=== PATIENT | female | born 1985 | race Two or more races ===

== ENCOUNTER 2024-07-23 16:08 | Emergency (ER) | payer MEDICAID, SELFPAY ==
[2024-07-23 16:26] VITALS: BP 124/79; PULSE 74; RESP 18; TEMP 37.2; O2SAT 98; BMI 36.8
--- NOTE | 2024-07-23 16:37 | PD.EDRME ---
Rapid Medical Screening Exam RME Arrival date/time: 07/23/24 16:08 Const 39-year-old female was contacted by outpatient labs and told to go to the emergency department for a workup of anemia due to low iron. Chief Complaint: Recheck/Abnormal Lab/Rx Vital signs: Vital Signs Temperature 98.9 F 07/23/24 16:26 Pulse Rate 74 07/23/24 16:26 Respiratory Rate 18 07/23/24 16:26 Blood Pressure 124/79 07/23/24 16:26 Pulse Oximetry (%) 98 07/23/24 16:26 Oxygen Delivery Method Room Air 07/23/24 16:26
[2024-07-23 17:58] LABS: Basophils % (Auto) 1 % (0-2.5); Eosinophils # (Auto) 0.2 Thou/mm3 (0.0-0.5); Eosinophils % (Auto) 4 % (0-10); Hematocrit 21.5 % (36.0-46.0); Immature Granulocytes % (Auto) 0 % (0-0); Immature Granulocytes Auto 0.02 Thou/mm3 (0.00-0.00); Lymphocytes # (Auto) 1.6 Thou/mm3 (1.0-4.8); Lymphocytes % (Auto) 30 % (10-50); Mean Corpuscular HGB Conc 27.9 g/dl (31.0-37.0); Mean Corpuscular Hemoglobin 16.3 pg (25.0-35.0); Mean Corpuscular Volume 59 fL (80-100); Monocytes # (Auto) 0.3 Thou/mm3 (0.0-0.8); Monocytes % (Auto) 6 % (0-12); Neutrophils # (Auto) 3.3 Thou/mm3 (1.8-7.7); Neutrophils % (Auto) 59 % (37-80); Nucleated Red Blood Cell % 0 /100 WBC (0); Platelet Count 397 Thou/mm3 (140-440); Red Blood Count 3.67 Miln/mm3 (4.00-5.20); White Blood Count 5.5 Thou/mm3 (3.6-11.0)
[2024-07-23 18:06] LABS: Partial Thromboplastin Time 23.9 Seconds (22.0-36.0); Prothrombin Time 11.4 Seconds (9.0-12.2)
[2024-07-23 18:13] LABS: Alanine Aminotransferase 17 U/L (10-49); Albumin, Serum 4.9 gm/dL (3.5-5.0); Anion Gap 10 (7-16); Aspartate Amino Transferase 42 U/L (0-34); BUN/Creatinine Ratio 11 Ratio (12-20); Bilirubin,Total 0.5 mg/dL (0.3-1.2); Blood Urea Nitrogen 11 mg/dL (9-23); Calcium 9.3 mg/dL (8.3-10.6); Carbon Dioxide 23.8 mMol/L (20.0-31.0); Chloride 108 mMol/L (98-107); Estimated Creatinine Clearance 85.6 mL/min (>60); Glucose 86 mg/dL (74-106); Osmolality,Calculated 281 (275-295); Potassium 3.9 mMol/L (3.4-5.1); Sodium 142 mMol/L (136-145); Total Protein 8.1 gm/dL (5.7-8.2); eGFR > 60 See Note
[2024-07-23 18:14] LABS: Albumin/Globulin Ratio 1.5 (1.2-2.2); Alkaline Phosphatase 58 U/L (46-116); Calcium (Corrected) 9.3 mg/dL (8.5-10.1); Globulin 3.2 gm/dL (2.3-3.5); HCG,Qualitative Serum Negative
[2024-07-23 18:18] LABS: Ferritin 2 ng/mL (7.3-270.7); Iron 11 mcg/dL (50-170); Percent Iron Saturation 2 % (20-55); Total Iron Binding Capacity 525 mcg/dL (250-425); Unsaturated Iron Binding 514 (225-295)
[2024-07-23 22:48] VITALS: BP 135/83; PULSE 60; RESP 16; TEMP 36.8; O2SAT 100
--- NOTE | 2024-07-23 23:01 | PD.EDRECHK ---
ED Recheck Abnl Lab Rx-RME/HPI General Chief Complaint: Recheck/Abnormal Lab/Rx Stated Complaint: SENT BY [facility] FOR BLOOD TRANSFUSION Time Seen by Provider: 07/23/24 22:28 Arrival date/time: 07/23/24 16:08 RME / HPI RME / HPI narrative: 07/23/24 16:08 Const 39-year-old female was contacted by outpatient labs and told to go to the emergency department for a workup of anemia due to low iron. ----- Dr. Farnsworth?s Main ED Evaluation: 39yo female presents to the ED for a chief complaint of abnormal labs. Patient states she had outpatient labs done at [facility], reporting she received a call from them today and was told to come in for a blood transfusion. Patient states her periods have been heavier than normal. Patient denies any hematemesis, bloody/black stools or any other associated symptoms. She denies any history of blood transfusions. She is not on a special diet. No known allergies. Related Data Home Medications ?Medication ?Instructions ?Recorded ?Confirmed vit no.95-ferrous 1 tab PO QDAY 09/04/18 09/06/18 fumarate 28 mg-folic acid 800 mcg tablet () Previous Rx's ?Medication ?Instructions ?Recorded cyclobenzaprine 10 mg tablet 10 mg PO TID PRN muscle spasm #30 02/13/20 tabs ibuprofen 800 mg tablet 800 mg PO TID PRN pain #30 tabs 02/13/20 Allergies Allergy/AdvReac Type Severity Reaction Status Date / Time No Known Allergies Allergy Verified 07/23/24 16:11 Review of Systems Review of Systems Systems Reviewed: All systems reviewed, normal except as documented Past Medical History Past Medical History NEUROLOGIC: Negative Neurological Disorders CARDIAC: Negative Cardiac Disorders or Congestive Heart Failure RESPIRATORY: Negative Chronic Obstructive Pulmonary Disease (COPD) GASTROINTESTINAL: Negative Gastrointestinal Disorders, Hepatitis or Colorectal Cancer GENITOURINARY: Negative Genitourinary Disorders, Renal Disease or Prostate Cancer REPRODUCTIVE: Positive Previous Pregnancies; Negative Breast Cancer, Endometriosis, Pelvic Inflammatory Disease, Testicular Cancer or Uterine Prolapse MUSCULOSKELETAL: Negative Musculoskeletal Disorders or Bone Cancer ENDOCRINE: Positive Endocrine Disorders; Negative Diabetes Mellitus Type 1 or Diabetes Mellitus Type 2 HEMATOLOGIC: Positive Anemia; Negative Blood Disorders OTHER HISTORY: Positive Hospitalization; Negative Autoimmune Disease, Down Syndrome, Developmental Delay, Shingles, Falls, Blood Transfusions, Blood Transfusion Reaction, Anesthesia Reactions, Organ Transplant, Chemotherapy, Radiation Therapy, Hyperbaric Therapy, MRSA, VRSA, Vancomycin-Resistant Enterococci, Human Immunodeficiency Virus (HIV), Chicken Pox, Measles, Mumps, Rubella (Jordanian Measles), Pertussis, Clostridium Difficile, Cancer, Breast Cancer, Cervical Cancer, Colorectal Cancer, Lung Cancer, Ovarian Cancer, Prostate Cancer or Testicular Cancer Family History FAMILY HISTORY: Negative Family Psychiatric Problems, Family Respiratory Disorders, Family Cardiac Disorders, Family Gastrointestinal Problems, Family Cancer, Family Surgery or Family Anesthesia Reaction Surgical History SURGICAL: Negative Section or Organ Transplant Social History SMOKING STATUS: Never smoker SECOND HAND EXPOSURE: No SUBSTANCE USE: does not use ED Exam Narrative Physical exam: GENERAL APPEARANCE: alert and oriented x 4, well-developed, well-nourished, no acute distress VITALS: All vitals were reviewed and the pulse ox is 100% on room air, which is normal according to my interpretation. HEENT: Normocephalic, atraumatic; pupils equal, round, reactive to light; EOMI; mucous membranes pink, moist; oropharynx clear NECK: Supple LUNGS: CTABL; no wheezes, no rales, no rhonchi HEART: Regular rate, regular rhythm; normal S1, S2; no murmurs ABDOMEN: non distended; normal BS; soft, no tenderness, no guarding, no rebound; no masses, no organomegaly, no hernia BACK: no CVA tenderness EXTREMITIES: atraumatic; no edema NEUROLOGIC: awake; alert and oriented x4; cranial nerves II-XII grossly intact; no focal sensory or motor deficits PSYCHIATRIC: appropriate mood and affect SKIN: warm, dry, pale; no rashes Course Quality Measures none Orders Category Date Time Status Sizing Machine Operator Q4H START 00 Care 07/23/24 23:17 Active Continuous Pulse Oximetry NOW Care 07/23/24 23:17 Completed Insert IV NOW Care 07/23/24 23:05 Active Transfuse,blood/blood products NOW Care 07/23/24 23:02 Active CBC Stat Lab 07/23/24 17:07 Completed CMP [Comprehensive Metabolic Panel] Stat Lab 07/23/24 17:07 Completed Ferritin Stat Lab 07/23/24 17:07 Completed HCG,Qualitative Serum Stat Lab 07/23/24 17:07 Completed Iron Panel Stat Lab 07/23/24 17:07 Completed PT [Prothrombin Time with INR] Stat Lab 07/23/24 17:07 Completed PTT [Partial Thromboplastin Time] Stat Lab 07/23/24 17:07 Completed Type and Screen Stat Lab 07/23/24 23:02 Results prbc [Red Blood Cells] Stat Lab 07/23/24 23:02 Results Vital Signs Vital signs: Vital Signs Temperature 98.9 F 07/23/24 16:26 Pulse Rate 74 07/23/24 16:26 Respiratory Rate 18 07/23/24 16:26 Blood Pressure 124/79 07/23/24 16:26 Pulse Oximetry (%) 98 07/23/24 16:26 Oxygen Delivery Method Room Air 07/23/24 16:26 Recheck / Abnormal Lab / Rx MDM Narrative MDM Narrative:: Scribe Attestation: 07/23/24 Aaliyah Butts am scribing for and in the presence of Dr. Farnsworth. 2 units of pRBCs ordered due to the patient's hemoglobin and hematocrit being low. The patient was placed in ED observation care at 07/23/24 at 2315 hours. The patient was placed in ED observation care because of pending blood transfusion. The patients past medical history, social history, and family history were reviewed. At 0600, patient is still receiving her 2 unit of pRBCs. After the second unit is completed, the patient is able to be discharged home. Patient data External records reviewed:: [facility] previous records (Per chart review, patient has no relevant previous ED visits to this facility.) Clinical information provided by:: patient Social determinants that could affect healthcare access:: none Patient has the following chronic illnesses:: none How is presenting disease/condition affected by chronic disease/condition?: no chronic disease Evaluation data The following diagnostics were reviewed and interpreted by me:: lab results Lab and/or radiology exams considered but not ordered:: none Interpretation Summary: HnH is low at 6.0/21.5, Platelets are normal, PT and INR are normal, PTT is normal, Ferritin is low at 2, HCG is negative, according to my interpretation. Medications / Prescriptions Medications or Prescriptions considered but not ordered:: none Medication administrations:: 2 units pRBCs Consultations Consultation(s) initiated? (list below): No Diagnosis Recheck Differential Diagnosis: other (iron deficiency anemia, hemolytic anemia, microcytic anemia) Most likely diagnosis given after review of the tests above:: see clinical impression below Admission Indicated Admission indicated?: not indicated Admission Request Was there a request for admission?: No Disposition Plan Disposition Plan: Discharge Discharge Attestation Discharge Attestation: The patient and all family members were given an opportunity to ask questions and understood the discharge instructions. Discharge instructions specifically effects, indications for sooner follow up or return to the emergency department, and the expected course of current diagnosis. Patient condition: Stable Discharge Plan Plan Patient Disposition: HOME (Self Care) Disposition Comment: Stable for discharge home Patient condition on transfer: Stable Prescriptions/Referrals Prescriptions/Med Rec: No Action PNV cmb#95-ferrous fumarate-FA [] 28 mg iron- 800 mcg Tablet 1 tab PO QDAY ibuprofen 800 mg tablet 800 mg PO TID PRN (Reason: pain) Qty: 30 0RF cyclobenzaprine 10 mg tablet 10 mg PO TID PRN (Reason: muscle spasm) Qty: 30 0RF Referrals: [facility] [Provider Group] - In 1 week Rgoe Gray MD [Physician] - In 1 week Problem List Clinical Impression: Iron deficiency anemia, Menorrhagia Patient/Caregiver Discharge Instructions Discharge Activity: activity as tolerated Education Materials: Anemia, ED Anemia, Iron-Deficiency (Adult), ED Heavy Menstrual Bleeding Additional Instructions: Please return to the emergency department if you have any worsening or any further medical problems and we will help you. Otherwise you should follow-up in the [facility] within the next several days. Please let them know that you need to see a [employer] doctor. Print Language: Singaporean Stand Alone Forms: [employer] Award Info., Patient Portal Info Letter
[2024-07-24] VITALS (13 sets, daily range): BP systolic 118–149; BP diastolic 74–91; PULSE 60–72; RESP 13–20; TEMP 36.3–36.9; O2SAT 98–100
[2024-07-24 06:14] LABS: Path Review Blood Smear Sent to Pathologist
[2024-07-24 10:00] LABS: Basophils % (Auto) 1 % (0-2.5); Eosinophils % (Auto) 1 % (0-10); Hemoglobin 9.1 g/dL (12.0-16.0); Immature Granulocytes % (Auto) 0 % (0-0); Immature Granulocytes Auto 0.02 Thou/mm3 (0.00-0.00); Lymphocytes # (Auto) 1.1 Thou/mm3 (1.0-4.8); Lymphocytes % (Auto) 19 % (10-50); Mean Corpuscular HGB Conc 29.4 g/dl (31.0-37.0); Mean Corpuscular Volume 65 fL (80-100); Monocytes # (Auto) 0.4 Thou/mm3 (0.0-0.8); Monocytes % (Auto) 7 % (0-12); Neutrophils # (Auto) 4.1 Thou/mm3 (1.8-7.7); Neutrophils % (Auto) 73 % (37-80); Nucleated Red Blood Cell % 0 /100 WBC (0); Platelet Count 442 Thou/mm3 (140-440); Red Blood Count 4.79 Miln/mm3 (4.00-5.20); White Blood Count 5.6 Thou/mm3 (3.6-11.0)
--- NOTE | 2024-07-24 10:23 | PD.EDADDENDU ---
Emergency Room Addendum Addendum Narrative: Patient was signed out 0600 hrs. and the transfusion was ongoing and at 1024 hrs. the second unit is completed and a follow-up CBC came back with a hemoglobin of 9.1. Patient is having no active bleeding at this time but has had irregular and heavy bleeds with her periods. She knows to follow-up with her clinic in the next couple days to get that addressed. She does take iron sulfate 325 twice a day and return if getting worse. Patient is alert awake eating with no nausea vomiting and vital signs are stable. She did stand and walk without any difficulty
[2024-07-24 10:33] LABS: Alanine Aminotransferase 20 U/L (10-49); Albumin, Serum 5.1 gm/dL (3.5-5.0); Albumin/Globulin Ratio 1.6 (1.2-2.2); Alkaline Phosphatase 58 U/L (46-116); Anion Gap 9 (7-16); Aspartate Amino Transferase 36 U/L (0-34); BUN/Creatinine Ratio 13 Ratio (12-20); Bilirubin,Total 1.6 mg/dL (0.3-1.2); Blood Urea Nitrogen 12 mg/dL (9-23); Calcium 9.4 mg/dL (8.3-10.6); Calcium (Corrected) 9.4 mg/dL (8.5-10.1); Carbon Dioxide 22.8 mMol/L (20.0-31.0); Chloride 105 mMol/L (98-107); Creatinine (Component) 0.9 mg/dL (0.6-1.3); Estimated Creatinine Clearance 95.2 mL/min (>60); Globulin 3.1 gm/dL (2.3-3.5); Glucose 88 mg/dL (74-106); Osmolality,Calculated 272 (275-295); Sodium 137 mMol/L (136-145); Total Protein 8.2 gm/dL (5.7-8.2); eGFR > 60 See Note
== END 2024-07-24 10:53 | disposition home or self-care (01) ==
PROVIDERS: Physician Assistant; Emergency Provider Emergency Medicine
DX: D50.9 Iron deficiency anemia, unspecified (principal); N92.0 Excessive and frequent menstruation with regular cycle
CPT/HCPCS: 36415; 36430; 80053; 82728; 83540; 83550; 84703; 85025; 85610; 85730; 86850; 86900; 86901; 86923; 99285; P9016

== ENCOUNTER 2024-09-29 11:01 | Emergency (ER) | payer MEDICAID, SELFPAY ==
[2024-09-29 11:26] VITALS: BP 147/87; PULSE 64; RESP 18; TEMP 37.1; O2SAT 100; BMI 35.4
--- NOTE | 2024-09-29 11:41 | PD.EDBACK ---
ED Back Injury Pain RME/HPI General Chief Complaint: Extremity Injury, Lower Stated Complaint: Left leg pain Time Seen by Provider: 09/29/24 11:09 Arrival date/time: 09/29/24 11:01 RME / HPI RME / HPI Narrative: 39-year-old patient presents emergency department with complaint of left lower leg pain radiating up to her back. Patient states that she stepped in a gopher hole 3 weeks ago and her pain has persisted since then. Patient states occasionally her pain waxes and wanes but this recent flareup was 3 days ago. She has seen her PCP and her PCP recommended she would need physical therapy but she states she that she has not been called for the physical therapy appointment. She denies numbness and tingling to bilateral lower extremity. Pain is usually worsened with activity. Related Data Home Medications ?Medication ?Instructions ?Recorded ?Confirmed vit no.95-ferrous 1 tab PO QDAY 09/04/18 09/06/18 fumarate 28 mg-folic acid 800 mcg tablet () Previous Rx's ?Medication ?Instructions ?Recorded cyclobenzaprine 10 mg tablet 10 mg PO TID PRN muscle spasm #30 02/13/20 tabs ibuprofen 800 mg tablet 800 mg PO TID PRN pain #30 tabs 02/13/20 ibuprofen 800 mg tablet 800 mg PO Q8H #30 tabs 09/29/24 Allergies Allergy/AdvReac Type Severity Reaction Status Date / Time No Known Allergies Allergy Verified 09/29/24 11:07 Review of Systems Review of Systems Systems Reviewed: All systems reviewed, normal except as documented Constitutional Constitutional: Reports system reviewed and no additional complaints, except as documented ENT Ears, Nose, Mouth, and Throat: Denies neck pain Cardiovascular Cardiovascular: Reports system reviewed and no additional complaints, except as documented Gastrointestinal Gastrointestinal: Reports system reviewed and no additional complaints, except as documented Musculoskeletal Musculoskeletal: Reports system reviewed and no additional complaints, except as documented, Denies limited range of motion, Denies muscle weakness, Denies myalgias, Denies neck pain, Reports numbness (to left lower extremity) and Reports radiating pain into limb Neurologic Neurologic: Reports numbness (to left lower extremity) ED Exam General General appearance: Present alert and in no apparent distress Head Head exam: Present atraumatic and normocephalic ENT ENT exam: Present normal exam and normal oropharynx Respiratory Respiratory exam: Present normal lung sounds bilaterally Cardiovascular Cardiovascular exam: Present regular rate and normal rhythm Extremities Exam Extremities exam: Present normal inspection and full ROM Back Exam Back 1 view image:  1. radiating pain Neurological Exam Neurological exam: Present alert and oriented X3 Course Quality Measures none Orders Category Date Time Status Ketorolac Inj [Toradol Inj] Med 09/29/24 11:40 Discontinued 60 mg IM X1 ONE Morphine Inj Med 09/29/24 11:40 Discontinued 4 mg IM X1 ONE Ondansetron Odt [Zofran Odt] Med 09/29/24 11:40 Discontinued 4 mg PO X1 ONE Vital Signs Vital signs: Vital Signs Temperature 98.8 F 09/29/24 11:26 Pulse Rate 64 09/29/24 11:26 Respiratory Rate 18 09/29/24 11:26 Blood Pressure 147/87 H 09/29/24 11:26 Pulse Oximetry (%) 100 09/29/24 11:26 Oxygen Delivery Method Room Air 09/29/24 11:26 Back Pain / Injury MDM Narrative MDM Narrative:: 39-year-old patient presents emergency department complaint of lower leg pain radiating to back patient states injury occurred after she stepped on a gopher hole 3 weeks ago no relief with ibuprofen at home. Awaiting physical therapy from PCP. Patient denies bowel or bladder dysfunction. Signs and symptoms appears consistent with sciatica. No signs of cauda equina. Patient data External records reviewed:: None Clinical information provided by:: patient Social determinants that could affect healthcare access:: none Patient has the following chronic illnesses:: na How is presenting disease/condition affected by chronic disease/condition?: no chronic disease Evaluation data The following diagnostics were reviewed and interpreted by me:: other (specify) (na) Lab and/or radiology exams considered but not ordered:: na Interpretation Summary: na Medications / Prescriptions Medications or Prescriptions considered but not ordered:: meds considered and ordered Medication administrations:: Medication Administration History Discontinued Medications Ketorolac Tromethamine (Ketorolac Inj 60 Mg/2 Ml Vial) 60 mg IM X1 ONE Stop: 09/29/24 11:41 Last Admin: 09/29/24 12:09 Dose: 60 mg Documented By: AMERICO Morphine Sulfate (Morphine Sulf Inj 10 Mg/Ml Vial) 4 mg IM X1 ONE Stop: 09/29/24 11:41 Last Admin: 09/29/24 12:09 Dose: 4 mg Documented By: AMERICO Ondansetron HCl (Ondansetron Odt 4 Mg Tabrap) 4 mg PO X1 ONE; Protocol Stop: 09/29/24 11:41 Last Admin: 09/29/24 12:08 Dose: 4 mg Documented By: AMERICO per above Consultations Consultation(s) initiated? (list below): No Diagnosis Differential diagnosis back pain/injury: lumbar radiculopathy, strain of lumbar region and discitis Most likely diagnosis given after review of the tests above:: sciatica Admission Indicated Admission indicated?: not indicated Admission Request Was there a request for admission?: No Disposition Plan Disposition Plan: Discharge Discharge Attestation Discharge Attestation: The patient and all family members were given an opportunity to ask questions and understood the discharge instructions. Discharge instructions specifically effects, indications for sooner follow up or return to the emergency department, and the expected course of current diagnosis. Patient condition: Stable Discharge Plan Plan Patient Disposition: HOME (Self Care) Prescriptions/Referrals Prescriptions/Med Rec: New ibuprofen 800 mg tablet 800 mg PO Q8H Qty: 30 0RF No Action PNV cmb#95-ferrous fumarate-FA [] 28 mg iron- 800 mcg Tablet 1 tab PO QDAY ibuprofen 800 mg tablet 800 mg PO TID PRN (Reason: pain) Qty: 30 0RF cyclobenzaprine 10 mg tablet 10 mg PO TID PRN (Reason: muscle spasm) Qty: 30 0RF Problem List Clinical Impression: Sciatica of left side associated with disorder of lumbosacral spine Patient/Caregiver Discharge Instructions Education Materials: Leg Low Back Pain Poss Causes, Common Spine and Disk Problems Print Language: Bolivian Stand Alone Forms: Lizeth Award Info., Patient Portal Info Letter
[2024-09-29] MEDS: ONDANSETRON ODT 4 MG TABRAP PO (12:08)
[2024-09-29] MEDS: KETOROLAC INJ 60 MG/2 ML VIAL IM (12:09)
[2024-09-29] MEDS: MORPHINE SULF INJ 10 MG/ML VIAL 4 MG IM (12:09)
== END 2024-09-29 12:45 | disposition home or self-care (01) ==
LOC: SERX 12:01
PROVIDERS: Emergency Provider Emergency Medicine; PCP Family Medicine
DX: M54.42 Lumbago with sciatica, left side (principal)
CPT/HCPCS: 96372; 99283; J1885; J2270; Q0162

== ENCOUNTER 2025-02-24 07:57 | Outpatient (RCR) | payer MEDICAID, SELFPAY | END 2025-03-01 23:59 | disposition home or self-care (01) | LOC: SCTC 07:57 | PROVIDERS: PCP Physician Assistant; Referring Provider Physician Assistant; Visit Provider Nurse Practitioner Family | DX: D50.0 Iron deficiency anemia secondary to blood loss (chronic) (principal); N92.0 Excessive and frequent menstruation with regular cycle; E03.9 Hypothyroidism, unspecified | CPT/HCPCS: 99213; G0463 ==